=== PATIENT | female | born 2000 | race Caucasian/White ===

== ENCOUNTER 2022-01-26 16:41 | Inpatient (IN) | payer OTHER ==
[~2022-01-26] VITALS: Ht 157.5 cm; Wt 99.3 kg
[2022-01-26 18:10] LABS: HEMOGLOBIN 9.8 gm/dl (12.3-15.3); RED BLOOD COUNT 3.78 M/UL (4.00-5.10)
[2022-01-26] MEDS ORDERED: URSODIOL300 MG PO (18:31)
[2022-01-26] MEDS ORDERED: FERROUS SULFAT325 MG PO (18:32)
[2022-01-29 06:03] LABS: HEMOGLOBIN 8.1 gm/dl (12.3-15.3)
[2022-01-29] MEDS ORDERED: COLACE100 MG PO (08:51)
[2022-01-29] MEDS ORDERED: PERCOCET 5-3251 EACH PO (08:51)
[2022-01-29] MEDS ORDERED: FERROUS SULFAT325 MG PO (08:51)
[2022-01-29] MEDS ORDERED: IBUPROFEN600 MG PO (08:51)
== END 2022-01-29 18:50 | disposition home or self-care (01) | DRG 786 ==
LOC: GENOP 16:41 → OB 17:28
PROVIDERS: ADMIT Obstetrics & Gynecology
PROC: 3E0234Z Introduction of Serum, Toxoid and Vaccine into Muscle, Percutaneous Approach (ICD-10-PCS; 2022-01-25)
PROC: 10907ZC Drainage of Amniotic Fluid, Therapeutic from Products of Conception, Via Natural or Artificial Opening (ICD-10-PCS; 2022-01-28)
PROC: 4A1HXCZ Monitoring of Products of Conception, Cardiac Rate, External Approach (ICD-10-PCS; 2022-01-28)
PROC: 10D00Z1 Extraction of Products of Conception, Low, Open Approach (ICD-10-PCS; principal; 2022-01-28 00:57)
DX: O13.4 Gestational [pregnancy-induced] hypertension without significant proteinuria, complicating childbirth (principal); K83.1 Obstruction of bile duct; D62 Acute posthemorrhagic anemia; Z20.822 Contact with and (suspected) exposure to COVID-19; Z3A.37 37 weeks gestation of pregnancy; Z37.0 Single live birth; O26.62 Liver and biliary tract disorders in childbirth; Z28.310 Unvaccinated for COVID-19; Z83.79 Family history of other diseases of the digestive system; Z81.8 Family history of other mental and behavioral disorders; Z82.0 Family history of epilepsy and other diseases of the nervous system; O69.81X0 Labor and delivery complicated by cord around neck, without compression, not applicable or unspecified; O99.02 Anemia complicating childbirth; Z23 Encounter for immunization; O62.2 Other uterine inertia; O76 Abnormality in fetal heart rate and rhythm complicating labor and delivery
CPT/HCPCS: 81001; 82800; 85014; 85018; 85025; 90471; 90715; C9113; J0690; J2250; J2274; J2370; J2405; J2590